=== PATIENT | female | born 2000 | race Two or more races ===

== ENCOUNTER 2023-10-23 04:24 | Emergency (ER) | payer SELFPAY ==
[2023-10-23 04:37] VITALS: BP 95/72; PULSE 102; RESP 20; TEMP 36.6; O2SAT 97; BMI 23.8
[2023-10-23 05:04] LABS: Appearance Urine Turbid; Color Urine Yellow; Glucose Urine UA Negative (Negative); Leukocyte Esterase Urine Large (3+) (Negative); Nitrite Urine Negative (Negative); UMIC TRIGGER UACC YES; Urine Blood Small (1+) (Negative); Urine Ketones Negative (Negative); Urine Protein 30 (1+) mg/dL (Neg-Trace)
[2023-10-23 05:05] LABS: UPreg QC Valid YES; Urine Pregnancy NEGATIVE (NEGATIVE)
[2023-10-23] MEDS: Phenazopyridine HCL 200 MG TABLET PO (05:12)
[2023-10-23] MEDS: cefuroxime axetiL 250 MG TABLET PO (05:12)
--- NOTE | 2023-10-23 05:13 | PC.NURSE ---
Per Dr. Masterson labs draw no needed at this time.
[2023-10-23 05:19] LABS: Bacteria Urine 4+ (None Seen); UACC Culture Trigger YES; WBC Urine >50 /HPF (0-5)
--- NOTE | 2023-10-23 05:35 | ED_ITS ---
HPI - Female Genitourinary General Chief complaint: Urogenital-Female Stated complaint: UTI Time Seen by Provider: 10/23/23 04:57 Source: patient Mode of arrival: ambulatory Limitations: no limitations History of Present Illness ED Provider: li FRANCE Narrative: Patient complaining of dysuria frequency since yesterday no significant vaginal discharge no fever no flank pain no history of recurrent UTIs in the past Related Data Previous Rx's ?Medication ?Instructions ?Recorded cefuroxime axetil 250 mg tablet 250 mg PO BID 7 days #14 tabs 10/23/23 phenazopyridine 200 mg tablet 200 mg PO TID 2 days #6 tabs 10/23/23 (Pyridium) Allergies Allergy/AdvReac Type Severity Reaction Status Date / Time No Known Allergies Allergy Verified 10/23/23 04:39 Review of Systems Review of Systems: Yes all other systems are reviewed and are negative [facility] Social History Social History Smoked in Last 30 Days: No Use of substances other than those prescribed or required for medical reasons: No Advance Directives: No Advance Directives Information Provided: No Do you have a plan to hurt others: No Plan Patient : No Physical Exam Vital Signs: Vital Signs: Last Vital Signs Temp 97.9 F 10/23/23 05:53 Pulse 90 10/23/23 05:53 Resp 14 10/23/23 05:53 BP 102/60 10/23/23 05:53 Pulse Ox 99 10/23/23 05:53 O2 Del Method Room Air 10/23/23 05:53 BMI result Body Mass Index 23.8 Appearance: Alert. Oriented X3. No acute distress. ENT: Pharynx normal. Oral Mucosa moist Neck: Normal inspection. Neck supple. CVS: Normal heart rate and rhythm. Pulses normal. Respiratory: No respiratory distress. Equal air entry bilateral, Abdomen: Soft and nontender. Bowel sounds are present, no mass palpable, no CVA tenderness Skin: Skin warm and dry. Normal skin color. Normal skin turgor. Extremities: No lower extremity edema. No calf tenderness Neuro: Oriented X 3. Medications Administered Discontinued Medications Generic Name Dose Route Start Last Admin Trade Name Freq PRN Reason Stop Dose Admin Cefuroxime Axetil 250 mg 10/23/23 05:03 10/23/23 05:12 Cefuroxime Axetil 250 Mg Tablet PO 10/23/23 05:04 250 mg ONCE ONE Administration Phenazopyridine HCl 200 mg 10/23/23 05:03 10/23/23 05:12 Phenazopyridine Hcl 200 Mg Tablet PO 10/23/23 05:04 200 mg ONCE ONE Administration Medical Decision Making Differential Diagnosis Differential Diagnoses: The differential diagnosis associated with the presentation includes UTI/dysuria Lab Data MDM Lab Attestation statement: I reviewed the patient's lab results. Labs: Lab Results 10/23/23 Range/Units 04:56 Hold Purple Top SEE NOTE Urine Color Yellow Urine Appearance Turbid Urine pH 6.0 (5.0-9.0) Ur Specific [place] 1.020 (1.005-1.025) Urine Protein 30 (1+) H (Neg-Trace) mg/dL Urine Glucose (UA) Negative (Negative) mg/dL Urine Ketones Negative (Negative) mg/dL Urine Blood Small (1+) H (Negative) Urine Nitrite Negative (Negative) Ur Leukocyte Esterase Large (3+) H (Negative) Urine RBC 3-5 H (0-2) /HPF Urine WBC >50 (0-5) /HPF Ur Squamous Epith Cells 6-10 (0-2) /HPF Urine Bacteria 4+ (None Seen) Hyaline Casts 3-5 (0-2) /LPF Urine Test NEGATIVE (NEGATIVE) Discharge Plan Discharge Clinical Impression: Urinary tract infection Patient Disposition: Home, Self-Care Instructions: Urinary Tract Infection in Women (ED) Additional Instructions: Drink plenty of fluids Take antibiotic as prescribed Prescriptions: New cefuroxime axetil 250 mg tablet 250 mg PO BID 7 Days Qty: 14 0RF phenazopyridine [Pyridium] 200 mg tablet 200 mg PO TID 2 Days Qty: 6 0RF Interventions: ED Discharge Assessment Last Done: 10/23/23 05:53 Discharge Date/Time: 10/23/23 05:54 Print Language: Uzbek
[2023-10-23 05:53] VITALS: BP 102/60; PULSE 90; RESP 14; TEMP 36.6; O2SAT 99
== END 2023-10-23 05:54 | disposition home or self-care (01) ==
PROVIDERS: Emergency Provider Internal Medicine
DX: N39.0 Urinary tract infection, site not specified (principal); Z87.440 Personal history of urinary (tract) infections
CPT/HCPCS: 36415; 81001; 81025; 87086; 87088; 87186; 99283; 99284

== ENCOUNTER 2023-12-04 00:05 | Emergency (ER) | payer MEDICAID, OTHER, SELFPAY ==
--- NOTE | ~2023-12-04 | XR_ITS ---
EXAMINATION: XR WRIST, LEFT CLINICAL INFORMATION: Fall. Pain. COMPARISON: None available. TECHNIQUE: PA, lateral, and oblique views of the left wrist. FINDINGS: The bones and soft tissues are normal. No fracture. Alignment is anatomic with normal joint spaces. No erosions or abnormal soft tissue calcifications. XR/XR wrist LT min 3V IMPRESSION: No significant abnormality seen. Electronically signed by: Heriberto Lancaster MD 12/04/2023 01:41 AM EDT
[2023-12-04 00:09] VITALS: BP 122/66; PULSE 111; RESP 18; TEMP 36.7; O2SAT 98; BMI 25.4
[2023-12-04 00:28] LABS: Basophils Absolute Auto 0.1 X10*3/uL (0.0-0.2); Basophils Percent Auto 0.6 % (0-2); Eosinophils Percent Auto 0.5 % (0-4); Hematocrit 36.6 % (37.0-47.0); Hemoglobin 12.6 g/dl (12.0-16.0); Imm Gran Abs Auto 0.02 X10*3/uL (0.00-0.03); Imm Gran Pct Auto 0.2 % (0.0-0.4); Lymphocytes Absolute Auto 0.9 X10*3/uL (1.2-4.9); Lymphocytes Percent Auto 10.9 % (20-40); MANUAL DIFF FLAG NO; Mean Corpuscular HGB Conc 34.4 g/dl (31.0-35.0); Mean Corpuscular Hemoglobin 29.9 pg (27.0-33.0); Mean Corpuscular Volume 86.7 fL (80.0-98.0); Mean Platelet Volume 10.3 fL (9.4-12.3); Monocytes Absolute Auto 0.5 X10*3/uL (0.1-1.2); Neutrophils Absolute Auto 6.8 x10*3/uL (2.0-8.3); Neutrophils Percent Auto 81.8 % (45-73); Platelet Count 236 X10*3/uL (160-400); Red Blood Count 4.22 X10*6/uL (4.20-5.50); White Blood Count 8.3 X10*3/uL (4.8-10.8)
[2023-12-04 00:31] VITALS: BP 121/81; PULSE 100; RESP 18; TEMP 36.9; O2SAT 99
[2023-12-04 00:44] LABS: Albumin Level 4.6 g/dL (3.5-5.0); Alkaline Phosphatase 76 U/L (39-117); Anion Gap 15 (12-20); Aspartate Amino Transferase 20 U/L (5-31); Bilirubin Total 0.5 mg/dL (0.0-1.0); Blood Urea Nitrogen 11 mg/dL (9-16); Calcium 9.9 mg/dL (8.4-10.2); Carbon Dioxide 19 mmol/L (22-29); Chloride 109 mmol/L (96-108); Creatinine Clr Calc Pharmacy 81.3; Estimated Glomerular Filt Rate > 60; Glucose Random 108 mg/dL (60-115); Potassium 3.3 mmol/L (3.3-5.1); Sodium 140 mmol/L (135-145)
--- NOTE | 2023-12-04 01:09 | ED_ITS ---
HPI - Fall General Chief Complaint: Fall Stated Complaint: Lt wrist Pain/Abd Pain Time Seen by Provider: 12/04/23 00:56 Source: patient Mode of arrival: ambulatory Limitations: no limitations History of Present Illness ED Provider: Dr. Niles Olson HPI Narrative: 23-year-old female with no significant past medical history who presents emergency department for evaluation of dizziness and fall down stairs. Patient states that over the past week she has had episodes of dizziness. She describes the dizziness as a room spinning sensation which is worse with position change. The dizziness is associated with nausea but no vomiting. She denied any numbness, weakness or visual change with the dizziness. She states that she will get episodes every 1-2 days but have periods of time which she has no episodes. She states that she was at the top of her stairs, the room started spinning, she lost her balance and fell down the stairs. She states she did hit the front of her head but had no loss of consciousness. She currently denies headache or neck pain. The patient was on control pills until 2 months prior. She states that since stopping the control pills she has not had a menstrual period. She is not certain if she is . She is currently complaining of left wrist pain Related Data Previous Rx's ?Medication ?Instructions ?Recorded cefuroxime axetil 250 mg tablet 250 mg PO BID 7 days #14 tabs 10/23/23 phenazopyridine 200 mg tablet 200 mg PO TID 2 days #6 tabs 10/23/23 (Pyridium) acetaminophen 500 mg tablet 1,000 mg (2 x 500 mg) PO Q6H PRN 12/04/23 (Tylenol Extra Strength) fever or pain #20 tabs ibuprofen 400 mg tablet 400 mg PO TID PRN fever or pain 12/04/23 #30 tabs meclizine 25 mg tablet (Dramamine 25 mg PO TID PRN dizziness #20 tabs 12/04/23 Less Drowsy) Allergies Allergy/AdvReac Type Severity Reaction Status Date / Time No Known Allergies Allergy Verified 12/04/23 00:10 Review of Systems 2 Review of Systems: Yes all other systems are reviewed and are negative PMF[facility] Social History Social History Smoked in Last 30 Days: No Use of substances other than those prescribed or required for medical reasons: No Advance Directives: No Advance Directives Information Provided: Yes Do you have a plan to hurt others: No Plan Physical Exam 2 Vital Signs: Vital Signs: Last Vital Signs Temp 97.0 F 12/04/23 01:50 Pulse 100 12/04/23 01:50 Resp 20 12/04/23 01:50 BP 105/65 12/04/23 01:50 Pulse Ox 98 12/04/23 01:50 O2 Del Method Room Air 12/04/23 01:50 BMI result Body Mass Index 25.4 vital signs were normal except for an elevated heart rate of 100 beats per minute Exam: General: Awake, alert in no distress Head: Normocephalic, atraumatic with no hematoma or tenderness of her scalp EENT: PERRL, Lids normal, sclera normal, conjunctiva normal, she does have lateral nystagmus, nose normal , ears normal, throat without erythema or exudates Neck: Supple, no adenopathy Lung: breath sounds symmetric, no wheezing, rales or rhonchi Chest: symmetric movement, nontender Heart: regular rate and rhythm, normal S1, S2 no murmurs or rubs Abdomen: soft, non-tender, nondistended, normal bowel sounds Back: no vertebral tenderness, no CVAT Extremities: left wrist reveals no obvious deformity or ecchymosis however she does have pain with extension flexion of the wrist with point tenderness over the anatomical snuffbox. Her extremities neurovascular intact Neuro: Awake, alert, oriented, normal speech, cranial nerves intact, moves all extremities symmetrically. Cerebellar exam revealed good kkscrz-by-zupn-to-finger, good heel to serrano, she does have easily inducible vertigo with position change Psych: Pleasant, cooperative Medical Decision Making Medical Decision Making MDM Narrative: 23-year-old female with no significant past medical history who presents emergency department for evaluation of fall down stairs with head strike but no loss of consciousness, left wrist pain and intermittent positional vertigo x1 week with vertigo prior to falling down the stairs. patient also has not had a menstrual period in 2 months- she stopped control 2 months prior. Physical examination revealed no obvious head trauma with no hematomas or tenderness with palpation of her scalp, she has no headache and no neck pain. Patient does have pain with palpation of her left wrist over the anatomical snuffbox with no other abnormalities. Neurologic exam was nonfocal but she does have easily inducible vertigo with position change and lateral nystagmus. Differential diagnosis: Includes but is not limited to closed head injury, skull fracture, intracranial bleed, cervical spine fracture, cervical sprain, benign positional vertigo, left wrist sprain, left wrist fracture, , anemia, electrolyte abnormalities Following evaluation was ordered: CBC, CMP, quantitative beta-hCG, left wrist x-ray three views Course: Patient's laboratory evaluation was unremarkable, patient's quantitative beta hCG was below detectable limits limits. I suspect that the patient's amenorrhea is related to being on control pills and since stopping the medication 2 months prior she has not regained control of her menstrual cycle and I did discuss this with her. The patient's x-ray of her left wrist did not reveal any acute fracture however she does have tenderness palpation over the navicular bone and concerned that there may be an occult fracture not seen on the plain x-rays. I did discuss this with her. The patient was placed in a Velcro thumb spica splint. The patient will need to follow-up with our orthopedic group for re-evaluation within 1 week to determine if she has had no occult fracture. Patient's dizziness is consistent with benign positional vertigo. The patient was started on meclizine 25 mg 3 times a day as needed for dizziness. she was also given prescription for Tylenol and ibuprofen. She was given printed and verbal instructions and discharged home. Admission/Observation Consideration of admission/observation: Escalation of care including admission/observation considered Lab Data MDM Lab Attestation statement: I reviewed the patient's lab results. My independent interpretation patient's laboratory evaluation is as follows: CBC was normal. Chloride elevated 109, CO2 low 19, LFTs were normal, quantitative beta hCG was below detectable limits this 12/04/23 00:23 12/04/23 00:23 Labs: Lab Results 12/04/23 Range/Units 00:23 WBC 8.3 (4.8-10.8) X10*3/uL RBC 4.22 (4.20-5.50) X10*6/uL Hgb 12.6 (12.0-16.0) g/dl Hct 36.6 L (37.0-47.0) % MCV 86.7 (80.0-98.0) fL MCH 29.9 (27.0-33.0) pg MCHC 34.4 (31.0-35.0) g/dl RDW 15.0 (11.0-16.0) % Plt Count 236 (160-400) X10*3/uL MPV 10.3 (9.4-12.3) fL Immature Gran % (Auto) 0.2 (0.0-0.4) % Neut % (Auto) 81.8 H (45-73) % Lymph % (Auto) 10.9 L (20-40) % [place] % (Auto) 6.0 (2-11) % Eos % (Auto) 0.5 (0-4) % Baso % (Auto) 0.6 (0-2) % Lymph # (Auto) 0.9 L (1.2-4.9) X10*3/uL [place] # (Auto) 0.5 (0.1-1.2) X10*3/uL Eos # (Auto) 0.0 (0.0-0.4) X10*3/uL Baso # (Auto) 0.1 (0.0-0.2) X10*3/uL Abs Immat Gran (auto) 0.02 (0.00-0.03) X10*3/uL Absolute Neuts (auto) 6.8 (2.0-8.3) x10*3/uL Absolute Nucleated RBC 0.000 (0.0-0.012) X10*3/uL Nucleated RBC % (auto) 0.0 (0.0-0.2) /100WBC Sodium 140 (135-145) mmol/L Potassium 3.3 (3.3-5.1) mmol/L Chloride 109 H (96-108) mmol/L Carbon Dioxide 19 L (22-29) mmol/L Anion Gap 15 (12-20) BUN 11 (9-16) mg/dL Creatinine 0.85 (0.5-1.4) mg/dL Estim Creat Clear Calc 81.3 Estimated GFR > 60 Random Glucose 108 (60-115) mg/dL Calcium 9.9 (8.4-10.2) mg/dL Total Bilirubin 0.5 (0.0-1.0) mg/dL AST 20 (5-31) U/L ALT 8 (0-31) U/L Alkaline Phosphatase 76 (39-117) U/L Total Protein 8.0 (6.5-8.0) g/dL Albumin 4.6 (3.5-5.0) g/dL Beta HCG, Quant < 2 mIU/mL Independent Interpretation I performed an independent interpretation of an: Plain X-Ray Interpretation: my interpretation of the patient's three view x-rays as follows: No acute fracture seen Radiology Impression Discussion of test interpretation with radiology: I have reviewed the radiologist's reading. Radiologist Impression: XR wrist LT min 3V IMPRESSION: No significant abnormality seen. Dictated By: Heriberto Lancaster MD Prescription Management I considered prescription management with: Pain Medication and Other ( Anti vertigo medications) Discharge Plan Discharge Clinical Impression: Fall Qualifiers: Encounter type: initial encounter Qualified Code(s): W19.XXXA - Unspecified fall, initial encounter Benign paroxysmal positional vertigo Qualifiers: Laterality: left Qualified Code(s): H81.12 - Benign paroxysmal vertigo, left ear Left wrist sprain Qualifiers: Encounter type: initial encounter Qualified Code(s): S63.502A - Unspecified sprain of left wrist, initial encounter Patient Disposition: Home, Self-Care Instructions: Wrist Injury (ED), Benign Paroxysmal Positional Vertigo (ED) Additional Instructions: Your blood work was normal. Your test was negative. Your dizziness is consistent with benign positional vertigo which is caused by your balance mechanism in your inner ear sending your brain the wrong signal. This is sometimes caused by a viral infection and usually gets better in 2 weeks. I am prescribing meclizine 25 mg pills, 1 pill 3 times a day for the next 3 days and then as needed for dizziness. ?This medication will make you sleepy. ?Do not drive or work while taking this medication. The x-ray of your wrist did not reveal any broken bones however your tender over the navicular bone of your wrist. This is the most common broken bone of the wrist and sometimes you can have a hairline fracture that is not seen on the initial x-ray. I want you to keep the thumb spica splint on until your re- evaluated by our orthopedic doctors to determine if you have a broken navicular bone. Call the orthopedic office on 12/06/2023 to schedule follow-up appointment. Take ibuprofen 400 mg pills, 1 pills every 6 hours as needed for pain or fever. Take Tylenol (acetaminophen) 500 mg pills, 2 pills every 6 hours as needed for pain or fever. Follow-up with the orthopedic office on 12/06/2023 to make a follow-up appointment in 3-4 days. Please return to the emergency department if your symptoms get worse or if you develop any symptoms that are concerning to you. Prescriptions: New acetaminophen [Tylenol Extra Strength] 500 mg tablet 1,000 mg PO Q6H PRN (Reason: fever or pain) Qty: 20 0RF meclizine [Dramamine Less Drowsy] 25 mg tablet 25 mg PO TID PRN (Reason: dizziness) Qty: 20 0RF ibuprofen 400 mg tablet 400 mg PO TID PRN (Reason: fever or pain) Qty: 30 0RF No Action cefuroxime axetil 250 mg tablet 250 mg PO BID 7 Days Qty: 14 0RF phenazopyridine [Pyridium] 200 mg tablet 200 mg PO TID 2 Days Qty: 6 0RF Referrals: Marry Cohn MD [Physician] - 3 days (Fall, left wrist injury, tender over anatomic snuffbox/navicular bone, no fracture seen. Placed in thumb spica splint, needs follow-up to rule out occult fracture of the navicular bone) Interventions: ED Discharge Assessment Last Done: 12/04/23 01:50 Discharge Date/Time: 12/04/23 01:50 Print Language: [place] Verdean
[2023-12-04 01:20] LABS: Alanine Aminotransferase 8 U/L (0-31); HCG Quantitative < 2 mIU/mL
[2023-12-04 01:22] VITALS: BP 105/65; PULSE 100; RESP 20; TEMP 36.1; O2SAT 98
--- NOTE | 2023-12-04 01:24 | MHC.EDTECH ---
Thumb spica splint apply to Patient left hand .
[2023-12-04 01:50] VITALS: BP 105/65; PULSE 100; RESP 20; TEMP 36.1; O2SAT 98
== END 2023-12-04 01:50 | disposition home or self-care (01) ==
PROVIDERS: Emergency Provider Emergency Medicine Emergency Medical Services
DX: H81.12 Benign paroxysmal vertigo, left ear (principal); S63.502A Unspecified sprain of left wrist, initial encounter; W10.8XXA Fall (on) (from) other stairs and steps, initial encounter; Y93.89 Activity, other specified; Y92.038 Other place in apartment as the place of occurrence of the external cause; Y99.9 Unspecified external cause status
CPT/HCPCS: 29125; 36415; 73110; 80053; 84702; 85025; 99283; 99284

== ENCOUNTER 2024-07-19 07:37 | Emergency (ER) | payer MEDICAID, OTHER, SELFPAY ==
--- NOTE | ~2024-07-19 | XR_ITS ---
EXAMINATION: XR CHEST CLINICAL INFORMATION: chest pain COMPARISON: None available. TECHNIQUE: 2 views of the chest were obtained. FINDINGS: No consolidation, pleural effusion or pneumothorax. Cardiomediastinal silhouette size is normal. No hyperinflation. Osseous structures are intact. S-shaped curvature of the thoracolumbar junction. XR/XR chest 2V IMPRESSION: Normal chest x-ray. Probable scoliosis, thoracolumbar junction. Electronically signed by: John Juaerz MD 07/19/2024 09:29 AM EDT
[2024-07-19 07:43] VITALS: BP 109/70; PULSE 73; RESP 16; TEMP 36.7; O2SAT 98; BMI 25.1
--- NOTE | 2024-07-19 07:51 | ED.URI ---
HPI - URI/Sore Throat General Chief Complaint: Upper Respiratory Symptoms Stated Complaint: Chest pain, body aches Time Seen by Provider: 07/19/24 07:51 Source: patient Mode of arrival: ambulatory Limitations: no limitations History of Present Illness ED Provider: Gaby FRANCE Narrative: 24 year old female without significant past medical history presents to the ED with c/o general malaise, body aches, nausea, headache, sinus pain, chest pain, and mild sore throat that began yesterday afternoon (07/18/24). She states she does not have sick contacts and denies recent travel. She denies fever, vomiting, diarrhea, photophobia, or visual changes and has not taken any OTC medications for management while at home. MD elicited complaint: sore throat and sinus pain Onset (ago): day(s) (1 day) Consistency: constant Severity: moderate Able to tolerate fluids by mouth: Yes Exacerbating factors: nothing Relieving factors: nothing Associated symptoms: myalgias, headache, sore throat, chest pain and nausea Treatments prior to arrival: none Related Data Previous Rx's ?Medication ?Instructions ?Recorded cefuroxime axetil 250 mg tablet 250 mg PO BID 7 days #14 tabs 10/23/23 phenazopyridine 200 mg tablet 200 mg PO TID 2 days #6 tabs 10/23/23 (Pyridium) acetaminophen 500 mg tablet 1,000 mg (2 x 500 mg) PO Q6H PRN 12/04/23 (Tylenol Extra Strength) fever or pain #20 tabs ibuprofen 400 mg tablet 400 mg PO TID PRN fever or pain 12/04/23 #30 tabs meclizine 25 mg tablet (Dramamine 25 mg PO TID PRN dizziness #20 tabs 12/04/23 Less Drowsy) ondansetron 4 mg disintegrating 4 mg PO Q8H PRN nausea and 07/19/24 tablet vomiting #20 tabs Allergies Allergy/AdvReac Type Severity Reaction Status Date / Time No Known Allergies Allergy Verified 07/19/24 07:45 Review of Systems Review of Systems: Constitutional : No Fever, pos chill, pos myalgia ENT/Mouth : pos sore throat, pos sinus pain Eyes: No Eye Pain, No Swelling, No Redness Cardiovascular : pos Chest Pain, No SOB, No Dyspnea on Exertion Respiratory : No Cough, No Sputum Gastrointestinal : pos Nausea, No Vomiting, No Diarrhea, No abdominal Pain Genitourinary : No Dysuria, No Urinary Frequency, No Hematuria, Musculoskeletal : No joint pain, pos Myalgias, No Joint Swelling Skin : No Skin Lesions, No rash Neuro : No Weakness, No Numbness, No Dizziness, positive Headache Psych : No Anxiety/Panic, No Depression Heme/Lymph: No Bruising, No Bleeding,No Lymphadenopathy Endocrine : No Polyuria, No Polydipsia All other systems reviewed and are negative Yes all other systems are reviewed and are negative [facility] Past Medical History Attestation statement: The following information was validated with the patient. Social History Social History Advance Directives: No Advance Directives Information Provided: Yes Physical Exam Vital Signs: Vital Signs: Last Vital Signs Temp 98.8 F 07/19/24 08:35 Pulse 70 07/19/24 08:35 Resp 14 07/19/24 08:35 BP 110/69 07/19/24 08:35 Pulse Ox 98 07/19/24 08:35 O2 Del Method Room Air 07/19/24 08:35 BMI result Body Mass Index 25.1 Appearance: Alert. Oriented X3. No acute distress. Eyes: Pupils equal, round and reactive to light. ENT: Pharynx normal. Neck: Normal inspection. Neck supple. CVS: Normal heart rate and rhythm. Pulses normal. Respiratory: No respiratory distress. Breath sounds normal. Abdomen: Soft and nontender. Skin: Skin warm and dry. Normal skin color. Normal skin turgor. Extremities: No lower extremity edema. No calf ttp Neuro: Oriented X 3. No motor deficit. No sensory deficit. CN2-12 intact Medications Administered Discontinued Medications Generic Name Dose Route Start Last Admin Trade Name Freq PRN Reason Stop Dose Admin Ibuprofen 400 mg 07/19/24 08:19 07/19/24 08:29 Ibuprofen 400 Mg Tablet PO 07/19/24 08:20 400 mg ONCE ONE Administration Ondansetron HCl 4 mg 07/19/24 08:19 07/19/24 08:29 Ondansetron Odt 4 Mg Tab.Rapdis TRANSLINGU 07/19/24 08:20 4 mg ONCE ONE Administration Medical Decision Making Medical Decision Making MDM Narrative: 24 year old female without significant past medical history presents to the ED with c/o general malaise, body aches, nausea, headache, sinus pain, chest pain, and mild sore throat that began yesterday afternoon (07/18/24). She states she does not have sick contacts and denies recent travel. She denies fever, vomiting, diarrhea and has not taken any OTC medications for management while at home. Patient's vital signs are stable and is non toxic appearing. Physical exam is unremarkable. Will obtain Covid/flu/RSV/strep swab. Will obtain chest x-ray to rule out possible pneumonia. Will obtain EKG to rule out ACS due to chest pain. Will give ondansetron for nausea and motrin for pain managment. Differential Diagnosis Differential Diagnoses: The differential diagnosis associated with the presentation includes Covid, flus, rsv, strep, pneumonia, ACS Admission/Observation Consideration of admission/observation: Escalation of care including admission/observation considered normal work up stable VS treat as viral syndrome Lab Data MDM Lab Attestation statement: I reviewed the patient's lab results. Labs: Lab Results 07/19/24 Range/Units 07:46 Influenza Type A (PCR) NEGATIVE (Negative) Influenza Type B (PCR) NEGATIVE (Negative) RSV RNA Qual (PCR) NEGATIVE (Negative) SARS-CoV-2 RNA (RT-PCR) NEGATIVE (Negative) Independent Interpretation I performed an independent interpretation of an: EKG and Plain X-Ray (normal ) Interpretation: Rate: 67 Rhythm: NSR [place]: normal Normal P waves. Normal [place]. Normal QRS complex. ST T wave : normal no HIMANSHU qTC: 438 prior studies: no acute ischemia The study has been interpreted contemporaneously by me. . Radiology Impression Discussion of test interpretation with radiology: I have reviewed the radiologist's reading. External Record Review External record reviewed: Inpatient record Prescription Management I considered prescription management with: Pain Medication (motrin) and Other (ondansetron) Chronic Conditions Rate: 67BPM Rhythm: sinus [place]: rightward Normal P waves. Normal [place]. Normal QRS complex. ST T wave : no T wave inversions, no ST elevations/depressions qTC: 364 notmal qTC interval no signs of ST elevation or ischemia present prior studies: The study has been interpreted contemporaneously by me. . Discharge Plan Discharge Clinical Impression: Viral infection Patient Disposition: Home, Self-Care Instructions: Viral Syndrome (ED) Additional Instructions: labs, EKG, Chest xray normal negative for flu covid rsv return for any worsening symptoms or concerns rest and stay hydrated Prescriptions: New ondansetron 4 mg tablet,disintegrating 4 mg PO Q8H PRN (Reason: nausea and vomiting) Qty: 20 0RF No Action acetaminophen [Tylenol Extra Strength] 500 mg tablet 1,000 mg PO Q6H PRN (Reason: fever or pain) Qty: 20 0RF meclizine [Dramamine Less Drowsy] 25 mg tablet 25 mg PO TID PRN (Reason: dizziness) Qty: 20 0RF ibuprofen 400 mg tablet 400 mg PO TID PRN (Reason: fever or pain) Qty: 30 0RF cefuroxime axetil 250 mg tablet 250 mg PO BID 7 Days Qty: 14 0RF phenazopyridine [Pyridium] 200 mg tablet 200 mg PO TID 2 Days Qty: 6 0RF Print Language: Greek
--- NOTE | 2024-07-19 08:08 | ECG_ITS ---
Test Reason : CHEST PAIN Blood Pressure : */* mmHG Vent. Rate : 67 BPM Atrial Rate : 67 BPM P-R Int : 126 ms QRS Dur : 90 ms QT Int : 364 ms P-R-T Axes : 11 101 46 degrees QTcB Int : 384 ms Normal sinus rhythm Rightward axis Borderline ECG No previous ECGs available Referred By: Yancy Griffin Electronically Signed By: STACY GERBER MD
--- OUTSIDE RECORDS SUMMARY | 2024-07-19 08:13 | XMS_ITS | Encounter Summary ---
Author Organization [employer] Address [address] [facility] [address], [place] [address] Care Team Providers Care Airport Operations Supervisor Name Role Phone Unavailable Primary Care Provider Unavailabl e Reason for Referral * Imaging (Routine) - Closed Specialty Diagnoses / Procedures Referred By Contac t Referred To Contact Radiology Diagnoses Vaginal bleeding Metrorrhagia Procedures US Pelvis Transvaginal Craig Ayala MD [address] [place] [phone] Phone: tel: fax: [address] Phone: tel: fax: Referral ID Status Reason Start Date Expiration Date Visits Re quested Visits Authorized [id number] Closed 03/20/2024 03/20/2025 1 1 Encounter Details Date Type Department Care Team (Late st Contact Info) Description 03/20/2024 Orders Only [facility] P[facility]S [address] [place] [id number] Craig Ayala MD [address] [place] [phone] Vaginal bleeding (Primary Dx); Metrorrhagia Social History Tobacco Use Types Packs/Day Years Used Date Smoking Tobacco: Never Smokeless Tobacco: Never Alcohol Use Standard Drinks/Week Comments Never 0 (1 standard drink = 0.6 oz pur e alcohol) Comments No Sex and Gender Information Value Date Recorded Sex Assigned at Female 02/21/2024 4:58 PM EST Legal Sex Female 1:37 PM EDT Gender Identity Female 02/21/2024 4:58 PM EST Sexual Orientation Straight 02/21/2024 4: 58 PM EST documented as of this encounter Plan of Treatment Scheduled Orders Name Type Priority Associated Diagnoses Orde r Schedule US Pelvis Transvaginal Imaging Routine Vaginal bleeding Metrorrhagia Expected: 03/20/2024, Expires: 03/20/2025 documented as of this encounter Visit Diagnoses Diagnosis Vaginal bleeding- Primary Other specified noninflammatory disorder of vagina Metrorrhagia documented in this encounter
--- OUTSIDE RECORDS SUMMARY | 2024-07-19 08:13 | XMS_ITS | Clinical Summary ---
Author Organization [employer] Address [address] [facility] 7[address] [place] [address] Care Team Providers Care Churner Name Role Phone Unavailable Primary Care Provider Unavailabl e Allergies No known active allergies Encounters Date Type Department Care Team Description 04/27/2024 Telephone [facility] [address] [place] [address] [phone] Aimee Hardy MA Chart Prep 04/21/2024 Patient Outreach [facility] [address] [place] [address] [phone] Emily Cruz FNP Pre-visit Planning (Pre-visit planning - LVM ) from Last 3 Months Social History Tobacco Use Types Packs/Day Years Used Date Smoking Tobacco: Never Smokeless Tobacco: Never Tobacco Cessation:Counseling Given: Not Answered Alcohol Use Standard Drinks/Week Comments Never 0 (1 standard drink = 0.6 oz pur e alcohol) Comments No Sex and Gender Information Value Date Recorded Sex Assigned at Female 02/21/2024 4:58 PM EST Legal Sex Female 1:37 PM EDT Gender Identity Female 02/21/2024 4:58 PM EST Sexual Orientation Straight 02/21/2024 4: 58 PM EST Last Filed Vital Signs Vital Sign Reading Time Taken Comments Blood Pressure 110/70 02/21/2024 5:15 PM EST Pulse 76 02/21/2024 5:15 PM EST Temperature 36.9 ??C (98.5 ??F) 02/21/2024 5:15 PM ES T Respiratory Rate 16 02/21/2024 5:15 PM EST Oxygen Saturation - - Inhaled Oxygen Concentration - - Weight 59.1 kg (130 lb 6 oz) 02/21/2024 5:15 PM EST Height 149.9 cm (4' 11 ) 02/21/2024 5:15 PM EST Body Mass Index 26.33 02/21/2024 5:15 PM EST Plan of Treatment Health Maintenance Due Date Last Done Comments Depression Screening 1998 HIV Screening 1998 SDOH Screening 1998 Alcohol/Substance Use Screening 2010 Family Planning (PISQ) 2013 HPV Vaccines (1 - 3-dose series) 2013 Hepatitis C Screening 2016 DTaP/Tdap/Td Vaccines (1 - Tdap) 2017 Hepatitis B Vaccines (1 of 3 - 19+ 3-dose series) 2017 Pap Smear 2019 COVID-19 Vaccine (1 - 2023-2 5 season) 2023 Influenza Vaccine (#1) 2023 Tobacco Screening 02/20/2025 02/21/2024 Zoster Vaccines (1 of 2) 2048 RSV Patients and Pa tients Aged 60 years or older (1 - 1-dose 75+ series) 2073 HIB Vaccines Aged Out No longer eligi ble based on patient's age to complete this topic Hepatitis A Vaccines Aged Out No long er eligible based on patient's age to complete this topic IPV Vaccines Aged Out No longer eligi ble based on patient's age to complete this topic Meningococcal Vaccine Aged Out No sonu london eligible based on patient's age to complete this topic Pneumococcal Vaccine: Pediat rics (0 to 5 Years) and At-Risk Patients (6 to 49) Years) Aged Out No longer elig ible based on patient's age to complete this topic RSV under 20 months Aged Out No longe r eligible based on patient's age to complete this topic Rotavirus Vaccines Aged Out No longer eligible based on patient's age to complete this topic Insurance [employer] Member Subscriber Plan / Payer (Ef fective 2024-Present) Name:Mari Olea Relation to Subscriber:Self Name:Mari Olea Payer ID:Not on file Group ID:Not on file Type:Medicaid Address: [facility] [id number] [place] [id number] HSN FULL
[2024-07-19] MEDS: Ibuprofen 400 MG TABLET PO (08:29)
[2024-07-19] MEDS: Ondansetron ODT 4 MG TAB.RAPDIS TRANSLINGU (08:29)
[2024-07-19 08:35] VITALS: BP 110/69; PULSE 70; RESP 14; TEMP 37.1; O2SAT 98
[2024-07-19 08:50] LABS: Influenza A PCR NEGATIVE (Negative); Influenza B PCR NEGATIVE (Negative); Resp Syncy Virus RNA Qual PCR NEGATIVE (Negative); SARS COV2 PCR INHOUSE NEGATIVE (Negative)
[2024-07-19 09:44] LABS: IDNOW Serial# 58CA691E; Strep A Nucleic Acid NEGATIVE (Negative)
[2024-07-19 09:59] VITALS: BP 110/69; PULSE 70; RESP 14; TEMP 37.1; O2SAT 98
== END 2024-07-19 10:00 | disposition home or self-care (01) ==
PROVIDERS: Emergency Provider Emergency Medicine
DX: B34.9 Viral infection, unspecified (principal); R07.9 Chest pain, unspecified; R11.0 Nausea; R53.81 Other malaise; J02.9 Acute pharyngitis, unspecified; Z03.818 Encounter for observation for suspected exposure to other biological agents ruled out
CPT/HCPCS: 0241U; 71046; 87651; 93005; 99283; 99284

== ENCOUNTER → 2024-07-19 08:08 | Outpatient (BNV) | payer MEDICAID, SELFPAY | PROVIDERS: Emergency Provider Emergency Medicine; Visit Provider Internal Medicine Cardiovascular Disease | DX: R07.9 Chest pain, unspecified (principal); R94.31 Abnormal electrocardiogram [ECG] [EKG] | CPT/HCPCS: 93010 ==

== ENCOUNTER → 2024-07-19 08:08 | Outpatient (BNV) | payer MEDICAID, SELFPAY | PROVIDERS: Emergency Provider Emergency Medicine; Visit Provider Radiology Diagnostic Radiology | DX: R07.9 Chest pain, unspecified (principal) | CPT/HCPCS: 71046 ==

== ENCOUNTER 2024-11-29 00:17 | Emergency (ER) | payer MEDICAID, OTHER, SELFPAY ==
[2024-11-29 00:25] VITALS: BP 119/71; PULSE 96; RESP 20; TEMP 37.1; O2SAT 100; BMI 24.2
[2024-11-29 02:22] VITALS: BP 113/64; PULSE 81; RESP 18; TEMP 38; O2SAT 98
--- OUTSIDE RECORDS SUMMARY | 2024-11-29 02:33 | XMS_ITS | Encounter Summary ---
Author Organization [employer] Address 75 [facility] [address], [place] [address] Care Team Providers Care [address] Attendant Name Role Phone Unavailable Primary Care Provider Unavailabl e Reason for Referral * Imaging (Routine) - Closed Specialty Diagnoses / Procedures Referred By Contac t Referred To Contact Radiology Diagnoses Vaginal bleeding Metrorrhagia Procedures US Pelvis Transvaginal Craig Ayala MD [address] [place] [address] Phone: tel: fax: [address] Phone: tel: fax: Referral ID Status Reason Start Date Expiration Date Visits Re quested Visits Authorized [id number] Closed 03/20/2024 03/20/2025 1 1 Encounter Details Date Type Department Care Team (Late st Contact Info) Description 03/20/2024 Orders Only [facility] P[facility]S [address] [place] [id number] Craig Ayala MD [address] [place] [phone] Vaginal bleeding (Primary Dx); Metrorrhagia Social History [...]
--- OUTSIDE RECORDS SUMMARY | 2024-11-29 02:33 | XMS_ITS | Clinical Summary ---
Author Organization [employer] Address 75 [facility] 7t [place] [address] Care Team Providers Care Business Project Manager Name Role Phone Unavailable Primary Care Provider Unavailabl e Allergies No known active allergies Social History Tobacco Use Types Packs/Day Years [...] 76 02/21/2024 5:15 PM EST Temperature 36.9 C (98.5 F) 02/21/2024 5:15 PM EST Respiratory Rate 16 02/21/2024 5:15 PM EST [...] 1998 HIV Screening 1998 SDOH Screening 1998 Disability Screening 1998 Alcohol/Substance Use Screening 2010 Family Planning (PISQ) 2013 HPV Vaccines (1 - 3-dose series) 2013 Hepatitis C Screening 2016 DTaP/Tdap/Td Vaccines (1 - Tdap) 2017 Hepatitis B Vaccines (1 of 3 - 19+ 3-dose series) 2017 Pap Smear 2019 COVID-19 Vaccine (1 - 2023-2 5 season) 2023 Influenza Vaccine (#1) 2024 Tobacco Screening 02/20/2025 02/21/2024 Zoster Vaccines (1 [...] patient's age to complete this topic Meningococcal B Vaccine Aged Out No l onger eligible based on patient's age to complete this topic Meningococcal Vaccine Aged Out No sonu london eligible based on patient's age to complete this topic Pneumococcal Vaccine: Pediat rics (0 to 5 Years) and At-Risk Patients (6 to 49) Years Aged Out No longer eligi ble based on patient's age to complete this topic RSV under 20 months Aged Out No longe r eligible based on patient's age to complete this topic Rotavirus Vaccines Aged Out No longer eligible based on patient's age to complete this topic [place] [address] LIMITED [facility] FULL
== END 2024-11-29 04:18 | disposition left against medical advice (07) ==
PROVIDERS: Emergency Provider Emergency Medicine
DX: S01.81XA Laceration without foreign body of other part of head, initial encounter (principal); Y04.0XXA Assault by unarmed brawl or fight, initial encounter; Y93.9 Activity, unspecified; Y92.219 Unspecified school as the place of occurrence of the external cause; Z53.21 Procedure and treatment not carried out due to patient leaving prior to being seen by health care provider
CPT/HCPCS: 99281; 99283

== ENCOUNTER 2024-11-29 10:14 | Emergency (ER) | payer MEDICAID, OTHER, SELFPAY ==
[2024-11-29] VITALS (14 sets, daily range): BP systolic 86–105; BP diastolic 48–61; PULSE 57–106; RESP 12–21; TEMP 36.6–37.3; O2SAT 95–100; BMI 24.5
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
--- NOTE | ~2024-11-29 | XR_ITS ---
EXAMINATION: XR CHEST CLINICAL INFORMATION: weakness COMPARISON: July 19, 2024 TECHNIQUE: Frontal view of the chest was obtained. FINDINGS: Ill-defined opacity right perihilar region. No pleural effusion or pneumothorax. Cardiomediastinal silhouette size is normal. Osseous structures are intact. XR/XR chest 1V IMPRESSION: Concerning acute airspace disease, right middle lung lobe/right perihilar. Electronically signed by: John Juarez MD 11/29/2024 11:19 AM EDT
--- NOTE | ~2024-11-29 | CT_ITS ---
EXAMINATION: CT ABDOMEN AND PELVIS WITHOUT CONTRAST CLINICAL INFORMATION: Flank pain, left-sided. Fever. COMPARISON: None available. TECHNIQUE: Multidetector volumetric imaging was performed from the superior aspect of the liver through the pubic symphysis. Sagittal and coronal reformatted images were obtained on the technologist's workstation. This CT examination was performed using dose optimization techniques as appropriate, variously including the following: *Automated exposure control *Adjustment of mA and/or kV according to patient size (this includes techniques or standardized protocols for targeted exams where dose is matched to indication/reason for exam; i.e. extremities or head) *Use of iterative reconstruction technique DLP: 364.14 mg centimeter. FINDINGS: Inadequate evaluation of the intra-abdominal organs and vascular structures due to lack of IV contrast. LUNG BASES: Pulmonary patchy groundglass, lower lung lobes. LIVER, GALLBLADDER, AND BILIARY TREE: Liver measures 18 cm. Gallbladder is fluid-filled nondistended. No gross pericholecystic fluid collection or gallbladder wall thickening. No gross intrahepatic or extrahepatic biliary ductal dilatation. PANCREAS: No peripancreatic fluid collections. SPLEEN: 10 cm. ADRENAL GLANDS: No nodular lesion. KIDNEYS AND URETERS: Right kidney: Mild prominent pelvicalyceal system. I do not see calculus. There is a 4 mm fat density in the anterior upper pole midportion junction. Left kidney: No hydronephrosis. No nephrolithiasis. BLADDER: Fluid-filled. GASTROINTESTINAL TRACT: Inspissated secretions in the appendix. Abundant stool, large intestine. Procedural oral contrast from prior imaging. No intestinal wall thickening. No pneumatosis intestinalis. No intestinal obstruction pattern. Small trace volume of free fluid in the cul-de-sac. No pneumoperitoneum. There is a focal, 3 cm in edema pattern with punctate calcification in the inferior mesocecum. No fluid collection in the peritoneal cavity or retroperitoneum.. ABDOMINAL WALL: No gross umbilical hernia. LYMPH NODES: No mesenteric or retroperitoneal lymphadenopathy VASCULAR: No aneurysm, abdominal aorta. No gross calcified plaques. PELVIC VISCERA: Inadequate evaluation demonstrated indifferent position of the uterus. OSSEOUS STRUCTURES: No acute fracture or listhesis in the axial skeleton. No lytic or blastic lesions. Levoconvex curvature of the lower lumbar spine. Sclerosis and the sacroiliac joints. No acute fracture in the bony pelvis or the coxofemoral joints. Probable bony island, femoral heads. CT/CT abdomen pelvis wo IV con IMPRESSION: Concerning acute pneumonitis versus acute airspace disease, lung bases. 3 cm focal edema pattern, mesocecum, epiploic appendagitis should be considered in the correct clinical settings. No gross hydronephrosis or nephrolithiasis. Fleischner guidelines were followed. Electronically signed by: John Juarez MD 11/29/2024 12:53 PM EDT
[2024-11-29 10:59] LABS: MANUAL DIFF FLAG NO
[2024-11-29 11:01] LABS: Hematocrit 33.2 % (37.0-47.0); Hemoglobin 11.7 g/dl (12.0-16.0); Imm Gran Abs Auto 0.03 X10*3/uL (0.00-0.03); Imm Gran Pct Auto 0.3 % (0.0-0.4); Lymphocytes Absolute Auto 0.8 X10*3/uL (1.2-4.9); Mean Corpuscular HGB Conc 35.2 g/dl (31.0-35.0); Mean Corpuscular Hemoglobin 30.6 pg (27.0-33.0); Mean Corpuscular Volume 86.9 fL (80.0-98.0); NRBC Abs Auto 0.000 X10*3/uL (0.0-0.012); NRBC Pct Auto 0.0 /100WBC (0.0-0.2); Platelet Count 175 X10*3/uL (160-400); Red Blood Count 3.82 X10*6/uL (4.20-5.50); White Blood Count 9.5 X10*3/uL (4.8-10.8)
--- NOTE | 2024-11-29 11:03 | ECG_ITS ---
Test Reason : weakness Blood Pressure : */* mmHG Vent. Rate : 89 BPM Atrial Rate : 89 BPM P-R Int : 132 ms QRS Dur : 102 ms QT Int : 364 ms P-R-T Axes : 46 103 71 degrees QTcB Int : 442 ms Normal sinus rhythm Rightward axis Incomplete right bundle branch block Borderline ECG When compared with ECG of 19-Jul-2024 08:18, QT has lengthened Referred By: Yancy Griffin Electronically Signed By: EFREN LARSEN
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
[2024-11-29 11:20] LABS: Anion Gap 11 (12-20); Blood Urea Nitrogen 7 mg/dL (9-16); Calcium 8.3 mg/dL (8.4-10.2); Carbon Dioxide 22 mmol/L (22-29); Chloride 104 mmol/L (96-108); Creatinine Clr Calc Pharmacy 91.0; Estimated Glomerular Filt Rate > 60; Potassium 3.1 mmol/L (3.3-5.1); Sodium 134 mmol/L (135-145)
[2024-11-29] MEDS: Potassium Chloride ER 20 MEQ TAB.ER.PRT PO (11:40)
[2024-11-29 11:48] LABS: COVID-19 Test Negative (Negative); IDNOW Serial# 55D5AD1C
[2024-11-29 11:58] LABS: Alanine Aminotransferase 13 U/L (0-31); Albumin Level 4.3 g/dL (3.5-5.0); Alkaline Phosphatase 71 U/L (39-117); Aspartate Amino Transferase 24 U/L (5-31); Magnesium 1.5 mg/dL (1.6-2.6); Total Protein 7.3 g/dL (6.5-8.0)
[2024-11-29 11:59] LABS: Troponin-I High Sensitivity < 2.7 ng/L (<3.5-17.0)
--- OUTSIDE RECORDS SUMMARY | 2024-11-29 12:09 | XMS_ITS | Encounter Summary ---
Author Organization [employer] Address [address] [facility] [address], [place] [address] Care Team Providers Care Manager Financial Reporting Name Role Phone Unavailable Primary Care Provider Unavailabl e Reason for Referral * Imaging (Routine) - Closed Specialty Diagnoses / Procedures Referred By Contac t Referred To Contact Radiology Diagnoses Vaginal bleeding Metrorrhagia Procedures US Pelvis Transvaginal Craig Ayala MD [address] [place] [address] Phone: tel: fax: [address] Phone: tel: fax: Referral ID Status Reason Start Date Expiration Date Visits Re quested Visits Authorized [id number] Closed 03/20/2024 03/20/2025 1 1 Encounter Details Date Type Department Care Team (Late st Contact Info) Description 03/20/2024 Orders Only [facility] P[facility]S [address] [place] [phone] Craig Ayala MD [address] [place] [phone] Vaginal bleeding (Primary Dx); Metrorrhagia Social History [...]
--- OUTSIDE RECORDS SUMMARY | 2024-11-29 12:09 | XMS_ITS | Clinical Summary ---
Author Organization [employer] Address [address] [facility] 7t [place] [address] Care Team Providers Care Supervisor Slitting And Shipping Name Role Phone Unavailable Primary Care Provider [...] patient's age to complete this topic Insurance [place] [address] LIMITED [facility] FULL
[2024-11-29] MEDS: Magnesium Sulfate/H2O 2 GM/50 ML PIGGYBACK IV (12:28)
[2024-11-29 13:49] LABS: Appearance Urine Clear; Glucose Urine UA Negative (Negative); PH 7.0 (5.0-9.0); Specific Gravity - Urine <= 1.005 (1.005-1.025); UMIC TRIGGER UACC YES
[2024-11-29] MEDS: Lactated Ringers 1,000 ML 999 ML IV (14:45)
== END 2024-11-29 16:30 | disposition home or self-care (01) ==
PROVIDERS: Emergency Provider Emergency Medicine
DX: L03.211 Cellulitis of face (principal); S09.93XD Unspecified injury of face, subsequent encounter; R10.9 Unspecified abdominal pain; R50.9 Fever, unspecified; E87.6 Hypokalemia; E83.42 Hypomagnesemia; R53.1 Weakness; R60.0 Localized edema; R94.31 Abnormal electrocardiogram [ECG] [EKG]; Z03.818 Encounter for observation for suspected exposure to other biological agents ruled out
CPT/HCPCS: 36415; 70486; 71045; 74176; 80048; 80076; 81001; 83605; 83735; 84484; 84702; 85025; 87040; 87635; 93005; 96361; 96374; 96375; 99284; 99285; J0131; J0696; J1885; J3475; J7120

== ENCOUNTER → 2024-11-29 11:03 | Outpatient (BNV) | payer MEDICAID, SELFPAY | PROVIDERS: Emergency Provider Emergency Medicine; Visit Provider Internal Medicine | DX: I45.10 Unspecified right bundle-branch block (principal) | CPT/HCPCS: 93010 ==

== ENCOUNTER → 2024-11-29 11:03 | Outpatient (BNV) | payer MEDICAID, SELFPAY | PROVIDERS: Emergency Provider Emergency Medicine; Visit Provider Radiology Diagnostic Radiology | DX: K59.00 Constipation, unspecified (principal); S09.93XA Unspecified injury of face, initial encounter; J84.09 Other alveolar and parieto-alveolar conditions | CPT/HCPCS: 70486; 71045; 74176 ==

== ENCOUNTER 2024-11-29 17:05 | Emergency (ER) | payer MEDICAID, OTHER, SELFPAY | END 2024-11-29 19:18 | disposition left against medical advice (07) | PROVIDERS: Emergency Provider Student in an Organized Health Care Education/Training Program | DX: H57.10 Ocular pain, unspecified eye (principal); Z53.21 Procedure and treatment not carried out due to patient leaving prior to being seen by health care provider ==